=== PATIENT | male | born 1970 | race Hispanic/Latino ===

== ENCOUNTER 2019-05-01 22:28 | Emergency (ER) | payer OTHER ==
[2019-05-01 22:45] VITALS: BP 128/61; TEMP 98.2; O2SAT 94
[2019-05-01] MEDS ORDERED: SODIUM CHLORIDE 0.9% 1000ML 1,000 ML IVS PRN (22:47)
[2019-05-01] MEDS ORDERED: SODIUM CHLORIDE 0.9% (FLUSH) 10 ML SYG IV PRN (22:47)
[2019-05-01] MEDS ORDERED: LIDOCAINE 2% 5 ML VIAL INJ ONE (22:49)
[2019-05-01] MEDS ORDERED: SODIUM CHLORIDE 0.9% 100ML 100 ML IVPB ONE (23:16)
--- NOTE | 2019-05-01 23:18 | CT ---
EXAM: CT Abdomen and Pelvis Without Intravenous Contrast CLINICAL HISTORY: The patient is 59 years old and is Male; right flank pain TECHNIQUE: Axial computed tomography images of the abdomen and pelvis without intravenous contrast. Sagittal and coronal reformatted images were created and reviewed. This CT exam was performed using one or more of the following dose reduction techniques: automated exposure control, adjustment of the mA and/or kV according to patient size, and/or use of iterative reconstruction technique. COMPARISON: No relevant prior studies available. FINDINGS: LUNG BASES: Patchy groundglass opacity within the right lower lobe is present. PLEURAL SPACE: Small right pleural effusion is present. ABDOMEN: LIVER: The liver is mildly fatty. GALLBLADDER AND BILE DUCTS: No calcified stones. No ductal dilation. PANCREAS: Unremarkable. No ductal dilation. SPLEEN: Several splenic granuloma are present. ADRENALS: Unremarkable. No mass. KIDNEYS AND URETERS: No obstructing stones. No hydronephrosis. No perinephric fluid. STOMACH AND BOWEL: The stomach is distended with food contents and air. The small bowel is normal in caliber. A moderate amount of stool is present throughout colon. There is no mucosal thickening or evidence of bowel obstruction. PELVIS: APPENDIX: The appendix is normal in caliber without surrounding inflammation. BLADDER: The bladder is well distended. No stones. REPRODUCTIVE: Unremarkable as visualized. ABDOMEN and PELVIS: INTRAPERITONEAL SPACE: Unremarkable. No free air. No significant fluid collection. BONES/JOINTS: No acute fracture. SOFT TISSUES: The soft tissues are normal. VASCULATURE: Unremarkable. No abdominal aortic aneurysm. LYMPH NODES: Unremarkable. No enlarged lymph nodes. IMPRESSION: Findings suggestive of right lower lobe pneumonia with associated small pleural effusion. Electronically signed by: Ana Maria Hart MD 05/01/2019 11:17 PM [employer]
[2019-05-02] MEDS ORDERED: AZITHROMYCIN 250 MG TAB PO ONE (00:08)
--- NOTE | 2019-05-02 00:14 | ED.PDOC ---
History of Present Illness - General Chief Complaint: Back Pain or Injury Stated Complaint: rt flank pain Time Seen by Provider: 05/01/19 22:47 Source: patient, RN notes reviewed, Vital Signs reviewed, family Exam Limitations: no limitations - History of Present Illness Initial Comments: patient with acute right flank this evening. It awoke him from sleep. Pain is stabbing. It is constant. It does not radiate. Pain is 10 out of 10. Timing/Duration: 1-3 hours Severity: severe Improving Factors: nothing Worsening Factors: nothing Associated Symptoms: nausea/vomiting Allergies/Adverse Reactions: Allergies NO KNOWN ALLERGY Allergy (Verified 05/01/19 23:20) Home Medications: Ambulatory Orders Azithromycin Tab [Zithromax] 500 mg PO DAILY 3 Days #6 tab 05/02/19 guaiFENesin W/CODEINE LIQ [Robitussin AC] 10 ml PO Q4H PRN #120 ml 05/02/19 Review of Systems - Review of Systems Constitutional: States: no symptoms reported EENTM: States: no symptoms reported Respiratory: States: no symptoms reported Cardiology: States: no symptoms reported Gastrointestinal/Abdominal: States: abdominal pain, nausea Genitourinary: States: no symptoms reported Musculoskeletal: States: see HPI, back pain Skin: States: no symptoms reported Neurological: States: no symptoms reported Endocrine: States: no symptoms reported Hematologic/Lymphatic: States: no symptoms reported All other Systems: Reviewed and Negative Past Medical History (General) - Patient Medical History Hx Hypertension: Yes Hx Diabetes: No Hx Renal Disease: No Surgical History: no surgical history - Vaccination History Hx Tetanus, Diphtheria Vaccination: Yes Hx Influenza Vaccination: No - Social History Hx Tobacco Use: No Hx Alcohol Use: Yes - has had 6 today Family Medical History - Family History Father Family History: Unknown Physical Exam - Physical Exam General Appearance: Alert, Anxious, Obvious distress, Well Developed, Well Groomed, Well Hydrated, Well Nourished Eye Exam: bilateral normal Ears, Nose, Throat: hearing grossly normal, normal pharynx Neck: non-tender, full range of motion, supple, normal inspection Respiratory: chest non-tender, lungs clear, normal breath sounds, no respiratory distress, no accessory muscle use, respiratory distress, rales - right base Cardiovascular/Chest: normal peripheral pulses, regular rate, rhythm, no edema, no gallop, no JVD, no murmur, JVD Gastrointestinal/Abdominal: normal bowel sounds, non tender, soft, no organomegaly, no pulsatile mass Back Exam: normal inspection, no vertebral tenderness, CVA tenderness (R) Extremity: normal range of motion, non-tender, normal inspection, no pedal edema 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 plan on discharge home on antibiotics and pain medicines. Heladio Min M.D. #[id number] - Results/Orders Results/Orders: 05/01/19 22:47 Sodium Chloride 0.9% (Flush) [Saline Flush Syringe] 10 ml IV PRN PRN Sodium Chloride 0.9% 1000ML [Ns 1000 ml] 1,000 ml IVS .QD 05/01/19 22:48 IV Care:Saline Lock per Protoc QSHIFT URINALYSIS Stat Laboratory Results - last 24 hr 05/01/19 05/01/19 22:10 22:10 WBC 10.0 RBC 4.25 L Hgb 14.7 Hct 41.4 L MCV 97.3 H MCH 34.5 H MCHC 35.5 RDW 12.2 Plt Count 344 MPV 8.0 Absolute Neuts (auto) 4.40 Absolute Lymphs (auto) 4.40 H Absolute Monos (auto) 0.80 Absolute Eos (auto) 0.30 Absolute Basos (auto) 0.00 Neutrophils % 43.8 Lymphocytes % 44.5 Monocytes % 8.0 Eosinophils % 3.3 Basophils % 0.4 Sodium 135 Potassium 2.9 L Chloride 98 L Carbon Dioxide 25 Anion Gap 14.9 BUN 15 Creatinine 0.90 BUN/Creatinine Ratio 16.7 Random Glucose 112 H Serum Osmolality 271.7 L Calcium 9.1 EXAM: CT Abdomen and Pelvis Without Intravenous Contrast CLINICAL HISTORY: The patient is 59 years old and is Male; right flank pain TECHNIQUE: Axial computed tomography images of the abdomen and pelvis without intravenous contrast. Sagittal and coronal reformatted images were created and reviewed. This CT exam was performed using one or more of the following dose reduction techniques: automated exposure control, adjustment of the mA and/or kV according to patient size, and/or use of iterative reconstruction technique. COMPARISON: No relevant prior studies available. FINDINGS: LUNG BASES: Patchy groundglass opacity within the right lower lobe is present. PLEURAL SPACE: Small right pleural effusion is present. ABDOMEN: LIVER: The liver is mildly fatty. GALLBLADDER AND BILE DUCTS: No calcified stones. No ductal dilation. PANCREAS: Unremarkable. No ductal dilation. SPLEEN: Several splenic granuloma are present. ADRENALS: Unremarkable. No mass. KIDNEYS AND URETERS: No obstructing stones. No hydronephrosis. No perinephric fluid. STOMACH AND BOWEL: The stomach is distended with food contents and air. The small bowel is normal in caliber. A moderate amount of stool is present throughout colon. There is no mucosal thickening or evidence of bowel obstruction. PELVIS: APPENDIX: The appendix is normal in caliber without surrounding inflammation. BLADDER: The bladder is well distended. No stones. REPRODUCTIVE: Unremarkable as visualized. ABDOMEN and PELVIS: INTRAPERITONEAL SPACE: Unremarkable. No free air. No significant fluid collection. BONES/JOINTS: No acute fracture. SOFT TISSUES: The soft tissues are normal. VASCULATURE: Unremarkable. No abdominal aortic aneurysm. LYMPH NODES: Unremarkable. No enlarged lymph nodes. IMPRESSION: Findings suggestive of right lower lobe pneumonia with associated small pleural effusion. Electronically signed by: Ana Maria Hart MD 05/01/2019 11:17 PM Departure - Departure Clinical Impression: Pneumonia Qualifiers: Pneumonia type: due to unspecified organism Laterality: right Lung location: lower lobe of lung Qualified Code(s): J18.9 - Pneumonia, unspecified organism Disposition: Discharge to Home or Self Care Condition: Good Departure Forms: ED Discharge - Pt. Copy, Patient Portal Self Enrollment Instructions: Pneumonia, Adult (DC) Prescriptions: Azithromycin Tab [Zithromax] 500 mg PO DAILY 3 Days #6 tab guaiFENesin W/CODEINE LIQ [Robitussin AC] 10 ml PO Q4H PRN #120 ml PRN Reason: Cough Home Medications: Ambulatory Orders Azithromycin Tab [Zithromax] 500 mg PO DAILY 3 Days #6 tab 05/02/19 guaiFENesin W/CODEINE LIQ [Robitussin AC] 10 ml PO Q4H PRN #120 ml 05/02/19
[2019-05-02] MEDS ORDERED: HYDROCOD/APAP 5/325 (ER DISP) #3 TAB PO ONE (00:23)
== END 2019-05-02 00:39 | disposition home or self-care (01) ==
LOC: ER 22:28 → EDBD 22:28 → ER 05-02 00:39
DX: J18.1 Lobar pneumonia, unspecified organism (principal); I10 Essential (primary) hypertension